=== PATIENT | male | born 1985 | race Hispanic/Latino ===

== ENCOUNTER 2020-05-06 20:03 | Emergency (ER) | payer OTHER ==
[2020-05-06] MEDS ORDERED: IBUPROFEN 600 MG TABLET ONE (22:13)
== END 2020-05-07 01:07 | disposition home or self-care (01) ==
LOC: EEVIPCON 22:03 → EDH 22:03
DX: S92.002A Unspecified fracture of left calcaneus, initial encounter for closed fracture (principal); X58.XXXA Exposure to other specified factors, initial encounter; Y93.89 Activity, other specified; Y92.89 Other specified places as the place of occurrence of the external cause; Y99.8 Other external cause status
CPT/HCPCS: 73600; 73630; 73650; 73700